=== PATIENT | female | born 1990 | race Caucasian/White ===

== ENCOUNTER 2021-03-22 10:51 | Emergency (ER) | payer SELFPAY ==
[~2021-03-22] VITALS: Ht 149.9 cm; Wt 73.6 kg
[2021-03-22] MEDS ORDERED: TRAM1CAP15 PO (11:00)
[2021-03-22] MEDS ORDERED: METH-1164 PO (11:00)
[2021-03-22] MEDS ORDERED: DULO1CAP6 PO (11:00)
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
[2021-03-22] MEDS ORDERED: NS 1,000 ML IV ONE (13:15)
[2021-03-22 13:35] LABS: BASO # 0.1 10^3/uL (0.0-0.2); BASO % 0.9 % (0.0-1.0); EOS # 0.1 10^3/uL (0.0-0.5); EOS % 1.1 % (0.0-3.0); HEMATOCRIT 40.1 % (36.0-47.0); HEMOGLOBIN 12.7 g/dl (12.0-15.5); LYMPH % 37.5 % (24.0-44.0); MEAN CORPUSCULAR HEMOGLOBIN 31.8 pg (27.0-33.0); MEAN CORPUSCULAR HGB CONC 31.7 g/dl (32.0-36.5); MEAN CORPUSCULAR VOLUME 100.5 fl (80.0-96.0); MONO # 0.5 10^3/uL (0.0-0.8); MONO % 6.3 % (2.0-8.0); NEUTROPHILS # 4.3 10^3/uL (1.5-8.5); NEUTROPHILS % 53.9 % (36.0-66.0); PLATELET COUNT, AUTOMATED 485 10^3/uL (150-450); RED BLOOD COUNT 3.99 10^6/uL (4.00-5.40); WHITE BLOOD COUNT 7.9 10^3/uL (4.0-10.0)
[2021-03-22] MEDS ORDERED: ISOVUE-370 76% 100ML VIAL As Ordered ONE (13:47)
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
[2021-03-22 15:05] VITALS: BP 145/91
== END 2021-03-22 15:07 | disposition home or self-care (01) ==
LOC: M ED 10:51
DX: S10.93XA Contusion of unspecified part of neck, initial encounter (principal); Y04.8XXA Assault by other bodily force, initial encounter; Y92.9 Unspecified place or not applicable; Y93.9 Activity, unspecified; Y99.8 Other external cause status; G50.0 Trigeminal neuralgia; F33.9 Major depressive disorder, recurrent, unspecified; F41.9 Anxiety disorder, unspecified; Z88.1 Allergy status to other antibiotic agents; Z88.2 Allergy status to sulfonamides; Z79.899 Other long term (current) drug therapy
CPT/HCPCS: 70450; 70491; 72125; 80047; 85025; 96360; 99284; Q9967